=== PATIENT | female | born 1960 | race Caucasian/White ===

== ENCOUNTER 2019-08-06 15:24 | Emergency (ER) | payer OTHER ==
[~2019-08-06] VITALS: Ht 177.8 cm; Wt 136.5 kg
--- OUTSIDE RECORDS SUMMARY | 2019-08-06 15:28 | XMS ---
PreManage Notification: SARA ALLEN Security Dynamite Packing Machine Operator Events No recent Security Events currently on file [facility] There are no care providers on record at this time. Faustino has no Care Guidelines for this patient. Nimisha VISIT COUNT (12 MO.) 1 [facility] TOTAL 1 NOTE: Visits indicate total known visits. ED/UCC VISIT TRACKING (12 MO.) 08/06/2019 15:24 [facility] TYPE: Emergency COMPLAINT: - CONSTIPATION INPATIENT VISIT TRACKING (12 MO.) No inpatient visits to display in this time frame [email or web address]
[2019-08-06] MEDS ORDERED: ZESTRIL10 MG PO (15:45)
[2019-08-06] MEDS ORDERED: VITAMIN D35000 UNI2 PO (15:46)
[2019-08-06] MEDS ORDERED: HYDROCODON-ACE1 EA12 PO (15:47)
== END 2019-08-06 16:57 | disposition home or self-care (01) ==
LOC: ED 15:24
DX: K59.00 Constipation, unspecified (principal); I25.2 Old myocardial infarction; I10 Essential (primary) hypertension; Z85.42 Personal history of malignant neoplasm of other parts of uterus; Z85.830 Personal history of malignant neoplasm of bone; Z85.528 Personal history of other malignant neoplasm of kidney; Z88.5 Allergy status to narcotic agent; Z88.2 Allergy status to sulfonamides; Z91.018 Allergy to other foods; Z79.899 Other long term (current) drug therapy
CPT/HCPCS: 99283

== ENCOUNTER → 2020-03-23 | Emergency (ER) | payer OTHER ==
[~2020-03-23] VITALS: Ht 177.8 cm; Wt 136.5 kg
[~2020-03-23] MED LIST: HYDROCODON-ACE1 EA12 PO; VITAMIN D35000 UNI2 PO; ZESTRIL10 MG PO
--- OUTSIDE RECORDS SUMMARY | ~2020-03-23 | XMS | Encounter Summary ---
Demographics + + + | Address | [address] | | | [place] [address] | + + + | Home Phone | | + + + | Preferred Language | Unknown | + + + | Marital Status | | + + + | Synagogue Affiliation | Unknown | + + + | Race | White | + + + | Ethnic Group | Not or | + + + Author + + + | Author | [facility] | | | and [place] | + + + | Organization | [facility] | | | and [place] | + + + | Address | Unknown | + + + | Phone | Unavailable | + + + Support + + + + + | Name | Relationship | Address | Phone | + + + + + | Nithya Troncoso | ECON | NA | Unavailable | | | | [place] | | + + + + + | Maryanne Beal | ECON | N/A | | | | | [place] [address] | | + + + + + | Elly | KATYA | Unknown | | | [place] | | | | + + + + + Care Team Providers + +------+ + | Care Knife Setter Name | Role | Phone | + +------+ + PCP | Unavailable | + +------+ + Encounter Details +--------+ + + + + | Date | Type | Department | Care Team | Description | +--------+ + + + + | 09/10/ | Hospital | [facility] | | Dizziness | | 2002 | Encounter | [address]VERSION [address] | | | [address] | | | | | | [place] | | | | | | [address] | | | | | | [phone] | | | +--------+ + + + + Social History + +-------+ +--------+------+ | Tobacco Use | Types | Packs/Day | Years | Date | | | | | Used | | + +-------+ +--------+------+ | Never Assessed | | | | | + +-------+ +--------+------+ + + + | Sex Assigned at | Date Recorded | | | | + + + | Not on file | | + + + documented as of this encounter Plan of Treatment Not on filedocumented as of this encounter Visit Diagnoses + + | Diagnosis | + + | Dizziness Dizziness and giddiness | + + documented in this encounter"
--- OUTSIDE RECORDS SUMMARY | ~2020-03-23 | XMS | Encounter Summary ---
Demographics + + + | Address | [address] | | | [place] [address] | + + + | Home Phone | | + + + | Preferred Language | Unknown | + + + | Marital Status | | + + + | Amish Affiliation | Unknown | + + + | Race | White | + + + | Ethnic Group | Not or | + + + Author + + + | Author | [facility] | | | and [place] | + + + | Organization | [facility] | | | [...] | | | | | [place] [address] | | + + + + + | Elly | KATYA | Unknown | | | Sylvester | | | | + + + + + Care Team Providers + +------+ + | Care Direct Sales Professional Name | Role | Phone | + +------+ + | Wade Sena MD | PCP | | + +------+ + Encounter Details +--------+ + + + + | Date | Type | Department | Care Team | Description | +--------+ + + + + | 11/02/ | Orders Only | [facility] | Ko Vega, | | | 2013 | | UROLOGY [address] [place] [address] | PhD [address] | | | | | [place] [address] | [facility] | | | | | [place], [place] | [place] [address] | | | | | [address] | [phone] | | | | | [phone] | | | +--------+ + + + [...] Not on filedocumented as of this encounter Procedures + +--------+ + + + | Procedure Name | Priori | Date/Time | Associated Diagnosis | Comments | | | ty | | | | + +--------+ + + + | CULTURE, URINE | Routin | 11/02/2013 | | Results for this | | | e | 1:42 PM | | procedure are in the | | | | PDT | | results section. | + +--------+ + + + | URINALYSIS, REFLEX | Routin | 11/02/2013 | | Results for this | | MICROSCOPIC AND/OR | e | 1:25 PM | | procedure are in the | | CULTURE | | PDT | | results section. | + +--------+ + + + | URINALYSIS, | Routin | 11/02/2013 | | Results for this | | MICROSCOPIC ONLY | e | 1:25 PM | | procedure are in the | | | | PDT | | results section. | + +--------+ + + + documented in this encounter Results Culture, Urine (11/02/2013 1:42 PM PDT) + + | Specimen | + + | | + + + + + | Narrative | Performed At | + + + | Specimen Description CLEAN CATCH URINE CULTURE | EXTERNAL LAB | | >100,000 CFU/ML | | | ESCHERICHIA COLIAbnormal | | | REPORT STATUS FINAL | | | 11/04/2013 Suscepibility | | | for - ESCHERICHIA COLI Ampicillin | | | RESISTANT Resistant Ampicillin + Sulbactam RESISTANT | | | Resistant Cefepime | | | SUSCEPTIBLESensitive Cefoxitin | | | SUSCEPTIBLESensitive Ceftazidime | | | SUSCEPTIBLESensitive Ceftriaxone | | | SUSCEPTIBLESensitive Ciprofloxacin RESISTANT | | | Resistant Gentamicin | | | SUSCEPTIBLESensitive Levofloxacin | | | RESISTANT Resistant Nitrofurantoin | | | SUSCEPTIBLESensitive Piperacillin + Tazobactam | | | SUSCEPTIBLESensitive Tobramycin | | | SUSCEPTIBLESensitive Trimethoprim + SulfamethoxazoleRESISTANT | | | Resistant | | + + + + +---------+ + + | Performing | Address | City/State/Zipcode | Phone Number | | Organization | | | | + +---------+ + + | EXTERNAL LAB | | | | + +---------+ + + Urinalysis, Reflex Microscopic and/or Culture (11/02/2013 1:25 PM PDT) + + + + + + | Component | Value | Ref Range | Performed | Pathologist | | | | | At | Signature | + + + + + + | Color | YELLOW | | EXTERNAL | | | | | | LAB | | + + + + + + | Clarity, | CLEAR | | EXTERNAL | | | Urine | | | LAB | | + + + + + + | Specific | >1.030 (H) | 1.002 - 1.030 | EXTERNAL | | | [place], | | | LAB | | | Urine | | | | | + + + + + + | Leukocyte | NEGATIVE | | EXTERNAL | | | [facility], | | | LAB | | | Urine | | | | | + + + + + + | Nitrite, | NEGATIVE | | EXTERNAL | | | Urine | | | LAB | | + + + + + + | Urobilinoge | 0.2 | mg/dL | EXTERNAL | | | n, Urine | | | LAB | | + + + + + + | Protein, | 30 (A) | mg/dL | EXTERNAL | | | Urine | | | LAB | | + + + + + + | pH, Urine | 5.5 | 5.0 - 8.0 | EXTERNAL | | | | | | LAB | | + + + + + + | Blood, | SMALL (A) | | EXTERNAL | | | Urine | | | LAB | | + + + + + + | Ketones | NEGATIVE | mg/dL | EXTERNAL | | | | | | LAB | | + + + + + + | Bilirubin, | NEGATIVE | | EXTERNAL | | | Urine | | | LAB | | + + + + + + | Glucose, | NEGATIVE | mg/dL | EXTERNAL | | | Urine | | | LAB | | + + + + + + + + | Specimen | + + | | + + + +---------+ + + | Performing | Address | City/State/Zipcode | Phone Number | | Organization | | | | + +---------+ + + | EXTERNAL LAB | | | | + +---------+ + + Urinalysis, Microscopic Only (11/02/2013 1:25 PM PDT) + + + + + + | Component | Value | Ref Range | Performed | Pathologist | | | | | At | Signature | + + + + + + | WBC, UA | 6-10 | 0 - 5 /hpf | EXTERNAL | | | | | | LAB | | + + + + + + | RBC, UA | 0-2 | 0 - 5 /hpf | EXTERNAL | | | | | | LAB | | + + + + + + | Epithelial | 6-10 | /lpf | EXTERNAL | | | Cells | | | LAB | | + + + + + + | Bacteria, | NONE SEEN | | EXTERNAL | | | UA | | | LAB | | + + + + + + + + | Specimen | + + | | + + + +---------+ + + | Performing | Address | City/State/Zipcode | Phone Number | | Organization | | | | + +---------+ + + | EXTERNAL LAB | | | | + +---------+ + + documented in this encounter Visit Diagnoses Not on filedocumented in this encounter"
--- OUTSIDE RECORDS SUMMARY | ~2020-03-23 | XMS | Encounter Summary ---
Demographics + + + | Address | [address] | | | [place] [address] | + + + | Home Phone | | + + + | Preferred Language | Unknown | + + + | Marital Status | | + + + | Confucianism Affiliation | Unknown | + + + | Race | White | + + + | Ethnic Group | Not or | + + + Author + + + | Author | [facility] | | | and [place] | + + + | Organization | [facility] | | | and [place] | + [...] | | | | | [place] [address] | | + + + + + | Elly | KATYA | Unknown | | | Sylvester | | | | + + + + + Care Team Providers + +------+ + | Care Ballistic Expert Name | Role | Phone | + +------+ + PCP | Unavailable | + +------+ + Encounter Details +--------+ + + + + | Date | Type | Department | Care Team | Description | +--------+ + + + + | 06/26/ | Hospital | [facility] | | | | 2000 | Encounter | [address] | | | | | [address] | | | | | | [place] | | | | | | [address] | | | | | | [phone] | | | +--------+ + + + [...] filedocumented as of this encounter Visit Diagnoses Not on filedocumented in this encounter"
--- OUTSIDE RECORDS SUMMARY | ~2020-03-23 | XMS | Encounter Summary ---
Demographics + + + | Address | [address] | | | [place] [address] | + + + | Home Phone | | + + + | Preferred Language | Unknown | + + + | Marital Status | | + + + | Jewish Affiliation | Unknown | + + + | Race | White | + + + | Ethnic Group | Not or | + + + Author + + + | Author | [facility] | | | and [place] | + + + | Organization | [facility] | | | and [...] | | | | | [place] [address] | | + + + + + | Elly | KATYA | Unknown | | | Sylvester | | | | + + + + + Care Team Providers + +------+ + | Care Dairy Bacteriologist Name | Role | Phone | + +------+ + PCP | Unavailable | + +------+ + Encounter Details +--------+ + + + + | Date | Type | Department | Care Team | Description | +--------+ + + + + | 02/18/ | [facility] | [facility] | Conversion | Pyeloureteritis | | 2016 | Encounter | [facility] | Transaction, | cystica | | | | ULTRASOUND [address] | Provider Unknown | | | | | [facility] | | | | | | [place], [place] | (Fax) | | | | | [address] | | | | | | [phone] | | | +--------+ + + + [...] + + documented as of this encounter Medications at Time of Discharge + + + +---------+ + + | Medication | Sig | Dispensed | Refills | Start | End Date | | | | | | Date | | + + + +---------+ + + | amLODIPine | Take 5 mg by mouth | | 0 | 06/14/20 | | | (NORVASC) 5 mg | daily. | | | 13 | | | tablet | | | | | | + + + +---------+ + + | ergocalciferol | Take 50,000 Units by | | 0 | 06/14/20 | | | (VITAMIN D-2) 50,000 | mouth twice a week. | | | 13 | | | units capsule | | | | | | + + + +---------+ + + | | Take 25 mg by mouth | | 0 | 06/14/20 | | | hydroCHLOROthiazide | daily. | | | 13 | | | 25 mg tablet | | | | | | + + + +---------+ + + | | Take 2 tablets by | | 0 | 06/14/20 | | | HYDROcodone-acetamin | mouth every 4 (four) | | | 13 | | | ophen (NORCO) 10-325 | hours as needed. | | | | | | mg per tablet | | | | | | + + + +---------+ + + | ipratropium | Take 0.5 mg by | | 0 | 06/14/20 | | | (ATROVENT) 500 | nebulization every 6 | | | 13 | | | mcg/2.5 mL nebulizer | (six) hours as | | | | | | solution | needed. | | | | | + + + +---------+ + + documented as of this encounter Plan of Treatment Not on filedocumented as of this encounter Procedures + +--------+ + + + | Procedure Name | Priori | Date/Time | Associated Diagnosis | Comments | | | ty | | | | + +--------+ + + + | US RENAL LIMITED | Routin | 02/19/2016 | | Results for this | | | e | 5:36 PM | | procedure are in the | | | | PDT | | results section. | + +--------+ + + + documented in this encounter Results US Renal Limited (02/19/2016 5:36 PM PDT) + + | Specimen | + + | | + + + + + | Impressions | Performed At | + + + | 1. Small 1.9 cm right renal cyst. 2. Stable 3.5 cm left renal | | | cyst. | | | PM | | + + + + + + | Narrative | Performed At | + + + | [facility] ALL[facility] US KIDNEYS AND BLADDER HISTORY: 55 years. | | | Female. Right kidney mass TECHNIQUE: Sonographic evaluation of | | | the kidneys and bladder was performed. COMPARISON: 06/01/2013 and | | | 02/21/2015 CT abdomen. FINDINGS: The right kidney measures 13.1 x | | | 5.0 x 5.4cm. The left kidney measures 13.1 x 5.0 x 5.3cm. A 3.3 x | | | 3.5 x 3.0 cm cyst within the mid left kidney with a thin internal | | | septation. Mild renal cortical thinning. Small simple cyst within the | | | mid right kidney measuring 1.5 x 1.9 x 1.4 cm. The pre void bladder | | | volume is 98cc with no significant post void residual. Bilateral | | | ureteral jets are not visualized. | | + + + + + | Procedure Note | + + | Primitivo Lynne Conversion - 02/04/2019 9:34 AM PDT [facility]NE[facility] BLAD[facility] | | HISTORY:55 years. Female. Right kidney mass TECHNIQUE:Sonographic evaluation of the | | kidneys and bladder was performed. COMPARISON:06/01/2013 and 02/21/2015 CT abdomen. | | FINDINGS:The right kidney measures 13.1 x 5.0 x 5.4cm. The left kidney measures 13.1 x | | 5.0 x 5.3cm. A 3.3 x 3.5 x 3.0 cm cyst within the mid left kidney with a thin internal | | septation. Mild renal cortical thinning. Small simple cyst within the mid right kidney | | measuring 1.5 x 1.9 x 1.4 cm. The pre void bladder volume is 98cc with no significant | | post void residual. Bilateral ureteral jets are not visualized. IMPRESSION: 1. Small | | 1.9 cm right renal cyst.2. Stable 3.5 cm left renal cyst. | |06/01/2013 and 02/21/2015 CT abdomen. | | | |FINDINGS: | |The right kidney measures 13.1 x 5.0 x 5.4cm. The left kidney measures 13.1 x 5.0 x 5.3cm. | | | |A 3.3 x 3.5 x 3.0 cm cyst within the mid left kidney with a thin internal septation. Mild r enal cortical thinning. Small simple cyst within the mid right kidney measuring 1.5 x 1.9 x 1.4 cm. The pre void bladder volume is 98cc with no significant post | |void residual. Bilateral ureteral jets are not visualized. | | | |IMPRESSION: | |1. Small 1.9 cm right renal cyst. | |2. Stable 3.5 cm left renal cyst. | | | | | + + documented in this encounter Visit Diagnoses + + | Diagnosis | + + | Pyeloureteritis cystica | + + documented in this encounter"
--- OUTSIDE RECORDS SUMMARY | ~2020-03-23 | XMS | Encounter Summary ---
Demographics + + + | Address | [address] | | | [place] [address] | + + + | Home Phone | | + + + | Preferred Language | Unknown | + + + | Marital Status | | + + + | Baptism Affiliation | Unknown | + + + | Race | White | + + + | Ethnic Group | Not or | + + + Author + + + | Author | [facility] | | | and [place] | + + + | Organization | [facility] | | | [...] | | | | | [place] [address] | | + + + + + | Elly | KATYA | Unknown | | | Sylvester | | | | + + + + + Care Team Providers + +------+ + | Care Bottle Booth Attendant Name | Role | Phone | + +------+ + PCP | Unavailable | + +------+ + Encounter Details +--------+ + + + + | Date | Type | Department | Care Team | Description | +--------+ + + + + | 04/26/ | Hospital | [facility] | Conversion | Interstitial | | 2017 | Encounter | [facility] | Transaction, | cystitis | | | | UL[address]ASOUND [address] | Provider Unknown | | | | | [facility] | [phone] | | | | | [place], [place] | | | | | | [address] | Ko Vega MD | | | | | [phone] | PhD [id number] | | | | | | [facility] | | | | | | [place] [address] | | | | | | [phone] | | | | | | | | +--------+ + + + [...] 0.5 mg by | | 0 | // | | | (ATROVENT) 500 | nebulization [...] | US RENAL LIMITED | Routin | 04/26/2017 | | Results for this | | | e | 3:26 PM | | procedure are in the | | | | PDT | | results section. | + +--------+ + + + documented in this encounter Results US Renal Limited (04/26/2017 3:26 PM PDT) + + | Specimen | + + | | + + + + + | Impressions | Performed At | + + + | 1. Mild increase in size of the small cyst within the upper pole | | | the right kidney which measures 1.9 cm. 2. Mild complicated cyst | | | within the left kidney that has mildly increased in size from the | | | previous exam. Electronically signed by DO vanessa Benjamin | | | 04/26/2017 3:32 PM | | + + + + + + | Narrative | Performed At | + + + | [facility] ALL[facility] US KIDNEYS AND BLADDER HISTORY: 56 years. | | | Female. Interstitial cystitis and bilateral renal cysts with bilateral | | | flank pain TECHNIQUE: Sonographic evaluation of the kidneys and | | | bladder was performed. COMPARISON: None. FINDINGS: Right | | | kidney measures 11.1 x 4.5 x 4.7 cm. The left kidney measures 13.1 x | | | 5.0 x 4.6 cm. Kidneys have a normal cortical echotexture without | | | hydronephrosis. Hypoechoic structure within the superior pole the | | | right kidney measuring 1.9 cm that is felt to represent a cyst. | | | Complex cystic structure within the left kidney measuring 3.2 x 3.9 x | | | 3.7 cm with thin internal septation. This measured 3.3 x 3.5 x 3.0 cm | | | on the previous examination. Prevoid bladder volume is 100 cc. | | | Left ureteral jet not visualized. | | + + + + + | Procedure Note | + + | Maged, Rad Conversion - 02/03/2019 10:03 PM PDT [facility] | | HISTORY:56 years. Female. Interstitial cystitis and bilateral renal cysts with bilateral | | flank pain TECHNIQUE:Sonographic evaluation of the kidneys and bladder was performed. | | COMPARISON:None. FINDINGS:Right kidney measures 11.1 x 4.5 x 4.7 cm. The left kidney | | measures 13.1 x 5.0 x 4.6 cm. Kidneys have a normal cortical echotexture without | | hydronephrosis. Hypoechoic structure within the superior pole the right kidney measuring | | 1.9 cm that is felt to represent a cyst. Complex cystic structure within the left | | kidney measuring 3.2 x 3.9 x 3.7 cm with thin internal septation. This measured 3.3 x | | 3.5 x 3.0 cm on the previous examination. Prevoid bladder volume is 100 cc. Left | | ureteral jet not visualized. IMPRESSION: 1. Mild increase in size of the small cyst | | within the upper pole the right kidney which measures 1.9 cm.2. Mild complicated cyst | | within the left kidney that has mildly increased in size from the previous exam. | | | |Right kidney measures 11.1 x 4.5 x 4.7 cm. The left kidney measures 13.1 x 5.0 x 4.6 cm. Ki dneys have a normal cortical echotexture without hydronephrosis. | | | |Hypoechoic structure within the superior pole the right kidney measuring 1.9 cm that is fel t to represent a cyst. | | | |Complex cystic structure within the left kidney measuring 3.2 x 3.9 x 3.7 cm with thin inte rnal septation. This measured 3.3 x 3.5 x 3.0 cm on the previous examination. | | | |Prevoid bladder volume is 100 cc. Left ureteral jet not visualized. | | | | | |IMPRESSION: | |1. Mild increase in size of the small cyst within the upper pole the right kidney which me asures 1.9 cm. | |2. Mild complicated cyst within the left kidney that has mildly increased in size from the previous exam. | | | | | + + documented in this encounter Visit Diagnoses + + | Diagnosis | + + | Interstitial cystitis Chronic interstitial cystitis | + + documented in this encounter"
--- OUTSIDE RECORDS SUMMARY | ~2020-03-23 | XMS | Encounter Summary ---
Demographics + + + | Address | [address] | | | [place] [address] | + + + | Home Phone | | + + + | Preferred Language | Unknown | + + + | Marital Status | | + + + | Synagogue Affiliation | Unknown | + + + | Race | White | + + + | Ethnic Group | Not or | + + + Author + + + | Author | [facility] | | | and [place] | + + + | Organization | [facility] | | | and [...] | | | | | [place] [address] | | + + + + + | Elly | KATYA | Unknown | | | Sylvester | | | | + + + + + Care Team Providers + +------+ + | Care Embedded Systems Software Engineer Name | Role | Phone | + +------+ + PCP | Unavailable | + +------+ + Encounter Details +--------+ + + + + | Date | Type | Department | Care Team | Description | +--------+ + + + + | 03/05/ | Hospital | [facility] | Conversion | Acute medial | | 2011 | Encounter | [facility] | Transaction, | meniscal tear | | | | [address] | Provider Unknown | | | | | [place], [place] | [phone] | | | | | [address] | | | | | | [phone] | Ruddy Ernst | | | | | | Gene Allen DO | | | | | | [phone] | | | | | | [place] [address] | | | | | | [phone] | | | | | | | [...] | + +--------+ + + + | MRI KNEE RIGHT WO | Routin | 03/05/2012 | | Results for this | | CONTRAST | e | 3:32 PM | | procedure are in the | | | | PDT | | results section. | + +--------+ + + + documented in this encounter Results MRI Knee Right wo Contrast (03/05/2012 3:32 PM PDT) + + | Specimen | + + | | + + + + + | Narrative | Performed At | + + + | [facility] ALL[facility] 1960 MRI KNEE RIGHT WO CONTRAST 03/05/2012 | | | 2:40 PM HISTORY: Acute medial knee pain COMPARISON: None. | | | TECHNIQUE: Imaging was performed on a 1.5 Gogo MRI system. | | | Multiplanar sequences according to a standard department protocol | | | were acquired without contrast. FINDINGS: Osseous structures: | | | There is moderate osteoarthritic spurring of the medial and lateral | | | compartments of the knee. There are scattered geographic areas of | | | red marrow reconversion. Mild osteoarthritis along the | | | patellofemoral compartment is present. No acute bone marrow edema | | | is noted. Ligaments: The ACL and PCL are intact. Mild increased | | | signal is noted along the MCL and LCL which is suggestive of a grade 2 | | | tear. Mild increased signal is also noted along the popliteus | | | tendon which may reflect a mild strain. Meniscus: The free edge of | | | the lateral meniscus is blunted and attenuated. Moderate increased | | | signal is noted throughout the anterior horn of the lateral meniscus. | | | The posterior horn is intact. There is some fraying and | | | irregularity along the free edge of the medial meniscus as well. | | | The medial meniscus is slightly extruded from the knee joint. | | | Cartilage: There is some surface irregularity of the chondral surface. | | | This is most notable along the medial compartment where there | | | appears to be some thinning. Along the central weight-bearing | | | surface of the cartilage, there is a chondral defect measuring 7.3 x | | | 13.2 mm. This defect or thinning is noted along the weight-bearing | | | aspect of the medial femoral condyle. There is mild surface | | | irregularity of the lateral compartment. There is moderate thinning | | | of the patellar cartilage notably along the patellar apex. There | | | is chondromalacia grade 2 to grade 3 involving the trochlear sulcus | | | and trochlear facet. Soft tissues: The patellar tendon is intact. | | | There is a mild partial tear of the distal attachment of the | | | quadriceps tendon. There is reticulation and extensive generalized | | | subcutaneous edema surrounding the knee. No Booker cyst is noted. | | | There is no evidence of a muscle strain. The medial and lateral | | | patellar retinaculum are maintained. No loose bodies are noted. A | | | small joint effusion is present. IMPRESSION: 1. There appears | | | to be a partial tear of the quadriceps tendon. 2. Grade 2 sprain of | | | the MCL and LCL with a mild sprain of the adjacent popliteus tendon. | | | 3. There is fraying and blunting of the free edge of the medial and | | | lateral meniscus which appears fairly chronic. There may be a acute | | | small acute tear along the undersurface of the body of the medial | | | meniscus. 4. 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 5. There is red | | | marrow reconversion which has a broad differential including anemia, | | | smoking history and infectious etiologies. | | + + + + + | Procedure Note | + + | Maged, Rad Conversion - 02/13/2019 4:26 AM PDT [facility]1960MRI KNEE RIGHT | | WO CONTRAST03/05/2012 2:40 PM HISTORY: Acute medial knee pain COMPARISON: None. | | TECHNIQUE:Imaging was performed on a 1.5 Gogo MRI system. Multiplanar sequences | | according to a standard department protocol were acquired without contrast. FINDINGS: | | Osseous structures: There is moderate osteoarthritic spurring of the medial and lateral | | compartments of the knee. There are scattered geographic areas of red marrow | | reconversion. Mild osteoarthritis along the patellofemoral compartment is present. No | | acute bone marrow edema is noted. Ligaments: The ACL and PCL are intact. Mild increased | | signal is noted along the MCL and LCL which is suggestive of a grade 2 tear. Mild | | increased signal is also noted along the popliteus tendon which may reflect a mild | | strain. Meniscus: The free edge of the lateral meniscus is blunted and attenuated. | | Moderate increased signal is noted throughout the anterior horn of the lateral meniscus. | | The posterior horn is intact. There is some fraying and irregularity along the free | | edge of the medial meniscus as well. The medial meniscus is slightly extruded from the | | knee joint. Cartilage: There is some surface irregularity of the chondral surface. This | | is most notable along the medial compartment where there appears to be some thinning. | | Along the central weight-bearing surface of the cartilage, there is a chondral defect | | measuring 7.3 x 13.2 mm. This defect or thinning is noted along the weight-bearing | | aspect of the medial femoral condyle. There is mild surface irregularity of the lateral | | compartment. There is moderate thinning of the patellar cartilage notably along the | | patellar apex. There is chondromalacia grade 2 to grade 3 involving the trochlear | | sulcus and trochlear facet. Soft tissues: The patellar tendon is intact. There is a | | mild partial tear of the distal attachment of the quadriceps tendon. There is | | reticulation and extensive generalized subcutaneous edema surrounding the knee. No | | Booker cyst is noted. There is no evidence of a muscle strain. The medial and lateral | | patellar retinaculum are maintained. No loose bodies are noted. A small joint effusion | | is present. IMPRESSION:1. There appears to be a partial tear of the quadriceps | | tendon.2. Grade 2 sprain of the MCL and LCL with a mild sprain of the adjacent | | popliteus tendon.3. There is fraying and blunting of the free edge of the medial and | | lateral meniscus which appears fairly chronic. There may be a acute small acute tear | | along the undersurface of the body of the medial meniscus.4. Grade 2 to grade 3 | | chondromalacia of the central weight-bearing surface of the medial femoral condyle with | | a similar finding along the patellofemoral compartment.5. There is red marrow | | reconversion which has a broad differential including anemia, smoking history and | | infectious etiologies. | | AM | |4. Grade 2 to grade 3 chondromalacia of the central weight-bearing surface of the medial f emoral condyle with a similar finding along the patellofemoral compartment. | |5. There is red marrow reconversion which has a broad differential including anemia, smoki ng history and infectious etiologies. | | | | | + + documented in this encounter Visit Diagnoses + + | Diagnosis | + + | Acute medial meniscal tear Tear of medial cartilage or meniscus of knee, current | + + documented in this encounter"
--- OUTSIDE RECORDS SUMMARY | ~2020-03-23 | XMS | Encounter Summary ---
Demographics + + + | Address | [address] | | | [place] [address] | + + + | Home Phone | | + + + | Preferred Language | Unknown | + + + | Marital Status | | + + + | Alevism Affiliation | Unknown | + + + | Race | White | + + + | Ethnic Group | Not or | + + + Author + + + | Author | [facility] | | | and [place] | + + + | Organization | [facility] | | [...] | | | | | [place] [address] | | + + + + + | Elly | KATYA | Unknown | | | Sylvester | | | | + + + + + Care Team Providers + +------+ + | Care Rental Car Ferry Driver Name | Role | Phone | + +------+ + PCP | Unavailable | + +------+ + Encounter Details +--------+ + + + + | Date | Type | Department | Care Team | Description | +--------+ + + + + | 11/05/ | Hospital | [facility] | | | | 2012 | Encounter | MED CTR XRAY [address] | | | | | [address] | | | | | | [place] [address] | | | | | | [phone] | | | +--------+ + + + [...]
--- OUTSIDE RECORDS SUMMARY | ~2020-03-23 | XMS | Encounter Summary ---
Demographics + + + | Address | [address] | | | [place] [address] | + + + | Home Phone | | + + + | Preferred Language | Unknown | + + + | Marital Status | | + + + | Scientologist Affiliation | Unknown | + + + | Race | White | + + + | Ethnic Group | Not or | + + + Author + + + | Author | [facility] | | | and [place] | + + + | Organization | [facility] | | [...] | | | | | [place] [address] | | + + + + + | Elly | KATYA | Unknown | | | Sylvester | | | | + + + + + Care Team Providers + +------+ + | Care Preschool Teacher Aide Name | Role | Phone | + +------+ + | Wade Sena MD | PCP | | + +------+ + Encounter Details +--------+ + + + + | Date | Type | Department | Care Team | Description | +--------+ + + + + | 09/06/ | Orders Only | [facility] | Ko Vega, | | | 2013 | | UROLOGY [address] [place] [address] | PhD [address] | | | | | [place] [address] | [facility] | | | | | [place], [place] | [place] [address] | | | | | [address] | [phone] | | | | | [phone] | | | +--------+ + + + [...] + | URINALYSIS, REFLEX | Routin | 09/06/2013 | | Results for this | | MICROSCOPIC AND/OR | e | 11:42 AM | | procedure are in the | | CULTURE | | PDT | | results section. | + +--------+ + + + | URINALYSIS, | Routin | 09/06/2013 | | Results for this | | MICROSCOPIC ONLY | e | 11:42 AM | | procedure are in the | | | | PDT | | results section. | + +--------+ + + + | CULTURE, URINE | Routin | 09/06/2013 | | Results for this | | | e | 11:42 AM | | procedure are in the | | | | PDT | | results section. | + +--------+ + + + | MEDICAL CYTOLOGY | Routin | 09/06/2013 | | Results for this | | | e | 12:00 AM | | procedure are in the | | | | PDT | | results section. | + +--------+ + + + documented in this encounter Results Urinalysis, Reflex Microscopic and/or Culture (09/06/2013 11:42 AM PDT) + + + + + + | Component | Value | Ref Range | Performed | Pathologist | | | | | At | Signature | + + + + + + | Color | YELLOW | | EXTERNAL | | | | | | LAB | | + + + + + + | Clarity, | CLOUDY | | EXTERNAL | | | Urine | | | LAB | | + + + + + + | Specific | 1.025 | 1.002 - 1.030 | EXTERNAL | | | [place], | | | LAB | | | Urine | | | | | + + + + + + | Leukocyte | TRACE (A) | | EXTERNAL | | | Esterase, | | | LAB | | | Urine | | | | | + + + + + + | Nitrite, | POSITIVE (A) | | EXTERNAL | | | Urine | | | LAB | | + + + + + + | Urobilinoge | 0.2 | mg/dL | EXTERNAL | | | n, Urine | | | LAB | | + + + + + + | Protein, | NEGATIVE | mg/dL | EXTERNAL | | | Urine | | | LAB | | + + + + + + | pH, Urine | 6.0 | 5.0 - 8.0 | EXTERNAL | [...] + +---------+ + + Urinalysis, Microscopic Only (09/06/2013 11:42 AM PDT) + + + + + + | Component | Value | Ref Range | Performed | Pathologist | | | | | At | Signature | + + + + + + | WBC, UA | 1-5 | 0 - 5 /hpf | EXTERNAL | | | | | | LAB | | + + + + + + | RBC, UA | 6-10 | 0 - 5 /hpf | EXTERNAL | | | | | | LAB | | + + + + + + | Epithelial | >100 | /lpf | EXTERNAL | | | Cells | | | LAB | | + + + + + + | Bacteria, | 4+ (A) | | EXTERNAL | | | UA | | | LAB | | + + + + + + | Urinalysis | CULTURE TO FOLLOW | | EXTERNAL | | | Comments | | | LAB | | + + + + + + + + | Specimen | + + | | + + + +---------+ + + | Performing | Address | City/State/Zipcode | Phone Number | | Organization | | | | + +---------+ + + | EXTERNAL LAB | | | | + +---------+ + + Culture, Urine (09/06/2013 11:42 AM PDT) + + | Specimen | + + | | + + + + + | Narrative | Performed At | + + + | Specimen Description CLEAN CATCH URINE CULTURE | EXTERNAL LAB | | >100,000 CFU/ML | | | ESCHERICHIA COLI REPORT | | | STATUS FINAL | | | 09/08/2013 Suscepibility for - | | | ESCHERICHIA COLI Ampicillin RESISTANT | | | Resistant Ampicillin + Sulbactam RESISTANT Resistant | | | Cefazolin SUSCEPTIBLESensitive Cefepime | | | SUSCEPTIBLESensitive Cefoxitin | | | SUSCEPTIBLESensitive Ceftazidime | | | SUSCEPTIBLESensitive Ceftriaxone | | | SUSCEPTIBLESensitive Ciprofloxacin | | | RESISTANT Resistant Gentamicin | | | SUSCEPTIBLESensitive Levofloxacin [...] | | | + +---------+ + + Medical Cytology (09/06/2013 12:00 AM PDT) + + | Specimen | + + | | + + + + + | Narrative | Performed At | + + + | CASE: [id number] PATIENT: SARA ALLEN Cytology Report | EXTERNAL LAB | | Clinical History: GROSS HEMATURIA Gross Description: 20 ML CLOUDY | | | YELLOW FLUID Lab Preparation: 1 MONOLAYER Specimen: A. BLADDER | | | WASHING CYTOLOGIC INTERPRETATION: BLADDER WASHINGS: NEGATIVE | | | FOR MALIGNANT CELLS SPECIMEN ADEQUACY: Satisfactory for | | | Evaluation DESCRIPTION: The preparation is adequately cellular, | | | containing well-preserved transitional cells. Benign cell clusters | | | are present. Atypical findings are not encountered. Performing | | | Laboratory: Professional interpretation was performed by [facility] | | | [facility], [address] | | | [place] [address] (Marketing And Promotions Manager: Dwayne Saenz M.D.; CLIA#: | | | [id number]). Technical preparation was performed by [facility] | | | [facility] [address] [place] [address] | | | (Marketing And Promotions Manager: Justen Lees M.D.; CLIA#: [id number]). | | | Ruthann BECERRA([facility]) Electronically signed Aug | | | 2013 6:33:01AM Sondra Logan MD Electronically signed Sep 09 | | | 2013 11:48:32AM | | + + + + +---------+ + + | Performing | Address | City/State/Zipcode | Phone Number | | Organization | | | | + +---------+ + + | EXTERNAL LAB | | | | + +---------+ + + documented in this encounter Visit Diagnoses Not on filedocumented in this encounter"
--- OUTSIDE RECORDS SUMMARY | ~2020-03-23 | XMS | Encounter Summary ---
Demographics + + + | Address | [address] | | | [place] [address] | + + + | Home Phone | | + + + | Preferred Language | Unknown | + + + | Marital Status | | + + + | Judaism Affiliation | Unknown | + + + | Race | White | + + + | Ethnic Group | Not or | + + + Author + + + | Author | [facility] | | | and [place] [...] | | | | | [place] [address] | | + + + + + | Elly | KATYA | Unknown | | | Sylvester | | | | + + + + + Care Team Providers + +------+ + | Care Sheetmetal Trades Worker Name | Role | Phone | + +------+ + PCP | Unavailable | + +------+ + Encounter Details +--------+ + + + + | Date | Type | Department | Care Team | Description | +--------+ + + + + | 07/06/ | Hospital | C GENERIC IP | Conversion | Pain | | 2014 | Encounter | CONVERSION [address] | Transaction, | | | | | [address] | Provider Unknown | | | | | [place], [place] | [phone] | | | | | [address] | | | | | | [phone] | | | +--------+ + + + [...] | US RENAL LIMITED | Routin | 01/05/2013 | | Results for this | | | e | 11:08 PM | | procedure are in the | | | | PDT | | results section. | + +--------+ + + + documented in this encounter Results US Renal Limited (01/05/2013 11:08 PM PDT) + + | Specimen | + + | | + + + + + | Narrative | Performed At | + + + | This is a non-reportable procedure without a radiologist report and | | | is used for image storage only | | + + + + + | Procedure Note | + + | Primitivo Lynne - 02/05/2019 8:40 PM PDT This is a non-reportable procedure | | without a radiologist report and isused for image storage only | + + documented in this encounter Visit Diagnoses + + | Diagnosis | + + | Pain Generalized pain | + + documented in this encounter"
--- OUTSIDE RECORDS SUMMARY | ~2020-03-23 | XMS | Encounter Summary ---
Demographics + + + | Address | [address] | | | [place] [address] | + + + | Home Phone | | + + + | Preferred Language | Unknown | + + + | Marital Status | | + + + | Sabianism Affiliation | Unknown | + + + | Race | White | + + + | Ethnic Group | Not or | + + + Author + + + | Author | [facility] | | | and [place] | + + + | Organization | [facility] | | | [...] | | | | | [place] [address] | | + + + + + | Elly | KATYA | Unknown | | | Sylvester | | | | + + + + + Care Team Providers + +------+ + | Care Director Of Parks And Recreation Name | Role | Phone | + +------+ + PCP | Unavailable | + +------+ + Encounter Details +--------+ + + + + | Date | Type | Department | Care Team | Description | +--------+ + + + + | 03/17/ | Hospital | [facility] GENERIC OP | | JOINT PAIN-SHLDER | | 2001 | Encounter | [address]VERSION [address] | | | [address] | | | | | | [facility] [place] [place] | | | | | | [address] | | | | | | [phone] | | | +--------+ + + + [...] | Diagnosis | + + | Pain in joint, shoulder region | + + documented in this encounter"
--- OUTSIDE RECORDS SUMMARY | ~2020-03-23 | XMS | Encounter Summary ---
Demographics + + + | Address | [address] | | | [place] [address] | + + + | Home Phone | | + + + | Preferred Language | Unknown | + + + | Marital Status | | + + + | Quaker Affiliation | Unknown | + + + | Race | White | + + + | Ethnic Group | Not or | + + + Author + + + | Author | [facility] | | | and [place] | + + + | Organization | [facility] | | | and [...] | | | | | [place] [address] | | + + + + + | Elly | KATYA | Unknown | | | Sylvester | | | | + + + + + Care Team Providers + +------+ + | Care Behavioral Assistant Name | Role | Phone | + +------+ + PCP | Unavailable | + +------+ + Encounter Details +--------+ + + + + | Date | Type | Department | Care Team | Description | +--------+ + + + + | 12/10/ | Hospital | [facility] | Conversion | Renal cyst, left | | 2013 | Encounter | [facility] | Transaction, | | | | | [address] | Provider Unknown | | | | | [address] | | | | | | [place], [place] | (Fax) | | | | | [address] | | | | | | [phone] | | | +--------+ + + + [...] | US RENAL LIMITED | Routin | 12/10/2013 | | Results for this | | | e | 11:24 AM | | procedure are in the | | | | PDT | | results section. | + +--------+ + + + documented in this encounter Results US Renal Limited (12/10/2013 11:24 AM PDT) + + | Specimen | + + | | + + + + + | Impressions | Performed At | + + + | 1. Left renal cyst with a solitary thin septation, no contrast | | | enhancement and inapparent valentine represents a Bosniak 1 type lesion | | | which does not require further imaging at this point in time. 2. | | | Otherwise unremarkable ultrasound of the kidneys and bladder. | | | | | + + + + + + | Narrative | Performed At | + + + | [facility] US KIDNEYS AND BLADDER 12/10/2013 11:24 AM | | | HISTORY: 53 years. Female. Followup left renal cyst 753.10 | | | TECHNIQUE: Imaging performed using a 4-MHz curved array transducer. | | | COMPARISON: Prior ultrasound 01/05/[address] scan of 06/01/2013 | | | and 10/21/2012 FINDINGS: Right Kidney: 12.7 x 4.6 x 3.5 cm. | | | Normal echogenicity and cortical thickness. No solid or cystic | | | mass is noted. No renal parenchymal or collecting system calculi are | | | seen. No hydronephrosis noted. Normal blood flow to the renal hilum | | | seen with color flow imaging. Left Kidney: 12.0 x 6.4 x 4.3 cm. | | | Normal echogenicity and cortical thickness. No solid mass is | | | seen. A solitary simple cyst is noted measuring 3.1 x 2.7 x 3 cm. | | | Previously = 2.7 x 3 x [address] scan. There appears to be a single | | | septation. Prior CT scan showed no enhancing septations or | | | nodularity with a inapparent wall and no contrast enhancement. No | | | renal parenchymal or collecting system calculi are seen. No | | | hydronephrosis noted. Normal blood flow to the renal hilum seen with | | | color flow imaging. The pre-void volume of the bladder is 173 | | | cc. The post void volume is 0 cc which is normal. Bilateral | | | ureteral jet(s) noted. No wall thickening noted. No intraluminal | | | mass seen. | | + + + + + | Procedure Note | + + | Maged, Rad Conversion - 02/05/2019 8:40 PM PDT SARA NAIR KIDNEYS AND | | BLADDER12/10/2013 11:24 AM HISTORY:53 years. Female. Followup left renal cyst 753.10 | | TECHNIQUE:Imaging performed using a 4-MHz curved array transducer. COMPARISON:Prior | | ultrasound 01/05/[address] scan of 06/01/2013 and 10/21/2012 FINDINGS:Right Kidney: | | 12.7 x 4.6 x 3.5 cm. Normal echogenicity and cortical thickness. No solid or cystic | | mass is noted. No renal parenchymal or collecting system calculi are seen. No | | hydronephrosis noted. Normal blood flow to the renal hilum seen with color flow | | imaging. Left Kidney: 12.0 x 6.4 x 4.3 cm. Normal echogenicity and cortical thickness. | | No solid mass is seen. A solitary simple cyst is noted measuring 3.1 x 2.7 x 3 cm. | | Previously = 2.7 x 3 x 2[address] scan. There appears to be a single septation. Prior | | CT scan showed no enhancing septations or nodularity with a inapparent wall and no | | contrast enhancement. No renal parenchymal or collecting system calculi are seen. No | | hydronephrosis noted. Normal blood flow to the renal hilum seen with color flow | | imaging. The pre-void volume of the bladder is 173 cc. The post void volume is 0 cc | | which is normal. Bilateral ureteral jet(s) noted. No wall thickening noted. No | | intraluminal mass seen. IMPRESSION: 1. Left renal cyst with a solitary thin septation, | | no contrast enhancement and inapparent valentine represents a Bosniak 1 type lesion which | | does not require further imaging at this point in time.2. Otherwise unremarkable | | ultrasound of the kidneys and bladder. Electronically signed by Ignacio Elizabeth MD on | | 12/10/2013 12:25 PM | | scan showed no enhancing septations or nodularity with a inapparent wall and no contrast e nhancement. No renal parenchymal or collecting system calculi are seen. No hydronephrosis n oted. Normal blood flow to the renal hilum seen with color flow | |imaging. | | | |The pre-void volume of the bladder is 173 cc. The post void volume is 0 cc which is normal . Bilateral ureteral jet(s) noted. No wall thickening noted. No intraluminal mass seen. | | | |IMPRESSION: | |1. Left renal cyst with a solitary thin septation, no contrast enhancement and inapparent valentine represents a Bosniak 1 type lesion which does not require further imaging at this poin t in time. | |2. Otherwise unremarkable ultrasound of the kidneys and bladder. | | | | | + + documented in this encounter Visit Diagnoses + + | Diagnosis | + + | Renal cyst, left Unspecified congenital cystic kidney disease | + + documented in this encounter"
--- OUTSIDE RECORDS SUMMARY | ~2020-03-23 | XMS | Clinical Summary ---
Demographics + + + | Address | [address] | | | [place] [address] | + + + | Home Phone | | + + + | Preferred Language | Unknown | + + + | Marital Status | | + + + | Rastafarian Affiliation | Unknown | + + + | Race | White | + + + | Ethnic Group | Not or | + + + Author + + + | Author | [facility] | | | and [place] | + + + | Organization | [facility] | | | [...] | | | | | [place] [address] | | + + + + + | Elly | KATYA | Unknown | | | Sylvester | | | | + + + + + Care Team Providers + +------+ + | Care Classification Officer Name | Role | Phone | + +------+ + | Wade Sena MD | PCP | | + +------+ + Allergies + + + + + + | Active Allergy | Reactions | Severity | Noted | Comments | | | | | Date | | + + + + + + | Zinc | Anaphylaxis | High | 06/14/20 | Quit breathing, | | | | | 13 | Blisters | + + + + + + | Flu Virus Vaccine | Other (See Comments) | Medium | 11/25/19 | LOC | | | | | 19 | | + + + + + + | Pertussis Vaccines | Other (See Comments) | Medium | 11/25/19 | Violently sick | | | | | 19 | | + + + + + + | Pseudoephedrine | Rash | Medium | 11/25/19 | Rash | | | | | 19 | | + + + + + + | Sulfa Antibiotics | Anaphylaxis | High | 06/14/20 | Quit breathing | | | | | 13 | | + + + + + + | Azithromycin | Other (See Comments) | Medium | 06/14/20 | Mouth swells up | | | | | 13 | | + + + + + + Medications + + + +---------+------+------+-------+ | Medication | Sig | Dispensed | Refills | Star | End | Statu | | | | | | t | Date | s | | | | | | Date | | | + + + +---------+------+------+-------+ | ergocalciferol | Take 50,000 Units by | | 0 | 12/2 | | Activ | | (VITAMIN D-2) 50,000 | mouth twice a week. | | | 3/20 | | e | | units capsule | | | | 13 | | | + + + +---------+------+------+-------+ | | Take 25 mg by mouth | | 0 | 12/2 | | Activ | | hydroCHLOROthiazide | daily. | | | 320 | | e | | 25 mg tablet | | | | 13 | | | + + + +---------+------+------+-------+ | ondansetron | Take 1 tablet by | | 0 | 06/0 | | Activ | | (ZOFRAN ODT) 4 mg | mouth. | | | 420 | | e | | disintegrating | | | | 19 | | | | tablet | | | | | | | + + + +---------+------+------+-------+ | lisinopril | Take 20 mg by mouth | | 0 | 06/0 | | Activ | | (PRINIVIL, ZESTRIL) | daily. | | | 4/20 | | e | | 20 mg tablet | | | | 19 | | | + + + +---------+------+------+-------+ | | Take 2 tablets by | | 0 | 12/2 | | Activ | | HYDROcodone-acetamin | mouth every 4 (four) | | | 3/20 | | e | | ophen (NORCO) 10-325 | hours as needed. | | | 13 | | | | mg per tablet | | | | | | | + + + +---------+------+------+-------+ | amLODIPine | Take 5 mg by mouth | | 0 | 12/2 | | Activ | | (NORVASC) 5 mg | daily. | | | 3/20 | | e | | tablet | | | | 13 | | | + + + +---------+------+------+-------+ | ipratropium | Take 0.5 mg by | | 0 | 12/2 | | Activ | | (ATROVENT) 500 | nebulization every 6 | | | 3/20 | | e | | mcg/2.5 mL nebulizer | (six) hours as | | | 13 | | | | solution | needed. | | | | | | + + + +---------+------+------+-------+ | mirabegron | Take 50 mg by mouth. | | 0 | 06/0 | | Activ | | (MYRBETRIQ) 50 mg ER | | | | 4/20 | | e | | tablet | | | | 19 | | | + + + +---------+------+------+-------+ Active Problems + + + | Problem | Noted Date | + + + | Degeneration of intervertebral disc of lumbar region | 11/24/2018 | + + + | Pelvic pain in female | 12/10/2013 | + + + | History of uterine cancer | 11/03/2013 | + + + | Seizure | 11/02/2013 | + + + | Renal cyst, left | 11/02/2013 | + + + | Hemorrhagic cystitis | 11/02/2013 | + + + | Urgency of urination | 11/02/2013 | + + + | Urge urinary incontinence | 11/02/2013 | + + + | Stranguria | 11/02/2013 | + + + | Urinary hesitancy | 11/02/2013 | + + + | Incomplete bladder emptying | 11/02/2013 | + + + | Cystocele | 11/02/2013 | + + + | Weak urinary stream | 11/02/2013 | + + + | Gross hematuria | 09/06/2013 | + + + | Renal cyst | 09/06/2013 | + + + | Morbid obesity | 09/06/2013 | + + + Family History + + +------+ + | Medical History | Relation | Name | Comments | + + +------+ + | Other (see comment) | Maternal | | Other (see comments) - Brain tumors | | | Aunt | | | + + +------+ + | Cancer | Mother | | | + + +------+ + | Lung cancer | Mother | | | + + +------+ + | Stroke | Other | | | + + +------+ + | Uterine cancer | Other | | | + + +------+ + + +------+ + + | Relation | Name | Status | Comments | + +------+ + + | Father | | | MVA | + +------+ + + | Maternal Aunt | | | | + +------+ + + | Maternal Aunt | | | | + +------+ + + | Mother | | | | + +------+ + + | Mother | | | | + +------+ + + | Other | | | | + +------+ + + | Other | | | | + +------+ + + Social History + +-------+ +--------+------+ | Tobacco Use | Types | Packs/Day | Years | Date | | | | | Used | | + +-------+ +--------+------+ | Former Smoker | | 0.5 | | | + +-------+ +--------+------+ + + + | Sex Assigned at | Date Recorded | | | | + + + | Not on file | | + + + Last Filed Vital Signs + + + + + | Vital Sign | Reading | Time Taken | Comments | + + + + + | Blood Pressure | 153/77 | 11/24/2018 2:18 PM | | | | | PDT | | + + + + + | Pulse | 76 | 11/24/2018 2:18 PM | | | | | PDT | | + + + + + | Temperature | - | - | | + + + + + | Respiratory Rate | - | - | | + + + + + | Oxygen Saturation | - | - | | + + + + + | Inhaled Oxygen | - | - | | | Concentration | | | | + + + + + | Weight | 155.6 kg (343 lb) | 11/24/2018 2:18 PM | | | | | PDT | | + + + + + | Height | 177.8 cm (5' 10") | 11/24/2018 2:18 PM | | | | | PDT | | + + + + + | Body Mass Index | 49.22 | 11/24/2018 2:18 PM | | | | | PDT | | + + + + + Plan of Treatment + + + + + | Health Maintenance | Due Date | Last | Comments | | | | Done | | + + + + + | Hepatitis C | | | | | Screening | 0 | | | + + + + + | Med Mgmt: K | | | | | | 0 | | | + + + + + | Med Mgmt: Na | | | | | | 0 | | | + + + + + | Med Mgmt: Vit D | | | | | | 0 | | | + + + + + | Medication | | | | | Management | 0 | | | + + + + + | Cervical Cancer | | | | | Screening (Pap) | 0 | | | + + + + + | Colorectal Cancer | | | | | Screening | 0 | | | | (Colonoscopy) | | | | + + + + + | Vaccine: Zoster (1 | | | | | of 2) | 0 | | | + + + + + | Breast Cancer | | | | | Screening | 5 | | | + + + + + | Med Mgmt: Cr | | 02/22/20 | | | | 6 | 15 | | + + + + + Results Not on filefrom Last 3 Months
--- OUTSIDE RECORDS SUMMARY | ~2020-03-23 | XMS | Encounter Summary ---
Demographics + + + | Address | [address] | | | [place] [address] | + + + | Home Phone | | + + + | Preferred Language | Unknown | + + + | Marital Status | | + + + | Cheondoism Affiliation | Unknown | + + + | Race | White | + + + | Ethnic Group | Not or | + + + Author + + + | Author | [facility] | | | and [place] | + + + | Organization | [facility] | | [...] | | | | | [place] [address] | | + + + + + | Elly | KATYA | Unknown | | | Sylvester | | | | + + + + + Care Team Providers + +------+ + | Care Ceramic Artist Name | Role | Phone | + [...] Provider Unknown | | | | | [place], [place] | [phone] | | | | | [address] | | | | | | [phone] | | | +--------+ + + + [...] | + +--------+ + + + | CT ANGIOGRAM CHEST W | Routin | 07/01/2013 | | Results for this | | CONTRAST | e | 11:08 PM | | procedure are in the | | | | PST | | results section. | + +--------+ + + + documented in this encounter Results CT Angiogram Chest W Contrast (07/01/2013 11:08 PM PST) + + | Specimen | + + [...] Rad Conversion - 02/05/2019 8:40 PM PDT This is a non-reportable procedure | | without a radiologist report and isused for image storage only | + + documented in this encounter Visit Diagnoses + + | Diagnosis | + + | Pain Generalized pain | + + documented in this encounter"
--- OUTSIDE RECORDS SUMMARY | ~2020-03-23 | XMS | Encounter Summary ---
Demographics + + + | Address | [address] | | | [place] [address] | + + + | Home Phone | | + + + | Preferred Language | Unknown | + + + | Marital Status | | + + + | Christian Affiliation | Unknown | + + + | Race | White | + + + | Ethnic Group | Not or | + + + Author + + + | Author | [facility] | | | and [place] | + + + | Organization | [facility] | | | and [place] | + + + | Address | Unknown | + + + | Phone | Unavailable | + + + Support + + + + + | Name | Relationship | Address | Phone | + + + + + | Nithya Troncoso | ECON | NA | Unavailable | | | | [place] | | + + + + + | Maryanne Beal | ECON | N/A | | | | | [place] [address] | | + + + + + | Elly | KATYA | Unknown | | | Sylvester | | | | + + + + + Care Team Providers + +------+ + | Care Client Liaison Name | Role | Phone | + +------+ + PCP | Unavailable | + +------+ + Encounter Details +--------+ + + + + | Date | Type | Department | Care Team | Description | +--------+ + + + + | 10/25/ | Hospital | [facility] | Conversion | Lumbar radiculopathy | | 2018 | Encounter | [facility] MRI | Transaction, | | | | | [address] | Provider Unknown | | | | | [place], [place] | [phone] | | | | | [address] | | | | | | [phone] | Wade Sena | | | | | | MD [address] | | | | | | [facility], | | | | | | [place] [address] | | | | | | [phone] | | | | | | | [...] 0.5 mg by | | 0 | 06/14/ | | | (ATROVENT) 500 | nebulization [...] + +--------+ + + + | MRI LUMBAR SPINE WO | Routin | 10/25/2017 | | Results for this | | CONTRAST | e | 5:10 PM | | procedure are in the | | | | PDT | | results section. | + +--------+ + + + documented in this encounter Results MRI Lumbar Spine wo Contrast (10/25/2017 5:10 PM PDT) + + | Specimen | + + | | + + + + + | Impressions | Performed At | + + + | 1. No spinal canal stenosis. No neural foraminal stenosis. 2. | | | Mild disc degeneration of the lumbar spine with disc desiccation. | | | 3. Other findings as described. | | + + + + + + | Narrative | Performed At | + + + | [facility] 1960 MRI LUMBAR SPINE WO CONTRAST 10/25/2017 | | | 5:10 PM INDICATION: Lumbar radiculopathy. COMPARISON: None. | | | TECHNIQUE: Imaging was performed on a 1.5 Gogo MRI system. | | | Multiplanar sequences according to a standard department protocol | | | were acquired without contrast. FINDINGS: Conus ends at L1. No | | | abnormal signal of the terminal spinal cord. T11-T12 and T12-L1 | | | levels are unremarkable with no spinal canal stenosis or neural | | | foraminal stenosis. L1-L2: Intervertebral disc desiccation. No | | | spinal canal stenosis. No neural foraminal stenosis. Small facet joint | | | effusions. L2-L3: No spinal canal stenosis. Neural foramina are | | | open. Small facet joint effusions. Mild disc desiccation. L3-L4: | | | Mild disc desiccation. Mild posterior disc protrusion. No spinal canal | | | stenosis. Mild right neural foraminal narrowing. Left neural foramen | | | is open. Facet joints are normal. L4-L5: Intervertebral disc | | | height is preserved. No spinal canal stenosis. Neural foramina are | | | open. L5-S1: Intervertebral disc desiccation. Mild broad-based | | | posterior disc protrusion. No spinal canal stenosis. Neural foramina | | | are open. Facet joints are normal. Left parapelvic renal cysts. | | | No acute bone marrow edema of the lumbar spine vertebral bodies. | | + + + + + | Procedure Note | + + | Primitivo Lynne Conversion - 02/03/2019 2:26 AM [facility]1960MRI LUMBAR SPINE | | FAWN BARAHONA10/25/2017 5:10 PM INDICATION: Lumbar radiculopathy. COMPARISON: None. | | TECHNIQUE:Imaging was performed on a 1.5 Gogo MRI system. Multiplanar sequences | | according to a standard department protocol were acquired without contrast. FINDINGS: | | Conus ends at L1. No abnormal signal of the terminal spinal cord. T11-T12 and T12-L1 | | levels are unremarkable with no spinal canal stenosis or neural foraminal stenosis. | | L1-L2: Intervertebral disc desiccation. No spinal canal stenosis. No neural foraminal | | stenosis. Small facet joint effusions. L2-L3: No spinal canal stenosis. Neural foramina | | are open. Small facet joint effusions. Mild disc desiccation. L3-L4: Mild disc | | desiccation. Mild posterior disc protrusion. No spinal canal stenosis. Mild right neural | | foraminal narrowing. Left neural foramen is open. Facet joints are normal. L4-L5: | | Intervertebral disc height is preserved. No spinal canal stenosis. Neural foramina are | | open. L5-S1: Intervertebral disc desiccation. Mild broad-based posterior disc | | protrusion. No spinal canal stenosis. Neural foramina are open. Facet joints are normal. | | Left parapelvic renal cysts. No acute bone marrow edema of the lumbar spine vertebral | | bodies. IMPRESSION: 1. No spinal canal stenosis. No neural foraminal stenosis.2. Mild | | disc degeneration of the lumbar spine with disc desiccation.3. Other findings as | | described. | |L1-L2: Intervertebral disc desiccation. No spinal canal stenosis. No neural foraminal steno sis. Small facet joint effusions. | | | |L2-L3: No spinal canal stenosis. Neural foramina are open. Small facet joint effusions. Mil d disc desiccation. | | | |L3-L4: Mild disc desiccation. Mild posterior disc protrusion. No spinal canal stenosis. Mil d right neural foraminal narrowing. Left neural foramen is open. Facet joints are normal. | | | |L4-L5: Intervertebral disc height is preserved. No spinal canal stenosis. Neural foramina a re open. | | | |L5-S1: Intervertebral disc desiccation. Mild broad-based posterior disc protrusion. No spin al canal stenosis. Neural foramina are open. Facet joints are normal. | | | |Left parapelvic renal cysts. | | | |No acute bone marrow edema of the lumbar spine vertebral bodies. | | | |IMPRESSION: | | | |1. No spinal canal stenosis. No neural foraminal stenosis. | |2. Mild disc degeneration of the lumbar spine with disc desiccation. | |3. Other findings as described. | | | | | + + documented in this encounter Visit Diagnoses + + | Diagnosis | + + | Lumbar radiculopathy Thoracic or lumbosacral neuritis or radiculitis, unspecified | + + documented in this encounter"
--- OUTSIDE RECORDS SUMMARY | ~2020-03-23 | XMS | Encounter Summary ---
Demographics + + + | Address | [address] | | | [place] [address] | + + + | Home Phone | | + + + | Preferred Language | Unknown | + + + | Marital Status | | + + + | Pentecostal Affiliation | Unknown | + + + | Race | White | + + + | Ethnic Group | Not or | + + + Author + + + | Author | [facility] | | | and [place] | + + + | Organization | [facility] | | | [...] | | | | | [place] [address] | | + + + + + | Elly | KATYA | Unknown | | | Sylvester | | | | + + + + + Care Team Providers + +------+ + | Care Office Lead Name | Role | Phone | + +------+ + PCP | Unavailable | + +------+ + Encounter Details +--------+ + + + + | Date | Type | Department | Care Team | Description | +--------+ + + + + | 07/07/ | Hospital | [facility] | Conversion | Pain | | 2014 | Encounter | CONVERSION [address] | Transaction, | | | | | [address] | Provider Unknown | | | | | [place], [place] | [phone] | | | | | [address] | | | | | | [phone] | | | +--------+ + + + [...] +--------+ + + + | CT ANGIOGRAM | Routin | 07/01/2013 | | Results for this | | PULMONARY | e | 12:57 AM | | procedure are in the | | | | PST | | results section. | + +--------+ + + + documented in this encounter Results CT Angiogram Pulmonary w Contrast (07/01/2013 12:57 AM PST) + + | Specimen | + [...]
--- OUTSIDE RECORDS SUMMARY | ~2020-03-23 | XMS | Encounter Summary ---
Demographics + + + | Address | [address] | | | [place] [address] | + + + | Home Phone | | + + + | Preferred Language | Unknown | + + + | Marital Status | | + + + | Shinto Affiliation | Unknown | + + + | Race | White | + + + | Ethnic Group | Not or | + + + Author + + + | Author | [facility] | | | and [place] | + + + | Organization | [facility] | | [...] | | | | | [place] [address] | | + + + + + | Elly | KATYA | Unknown | | | Sylvester | | | | + + + + + Care Team Providers + +------+ + | Care Retail Loss Prevention Investigator Name | Role | Phone | + +------+ + PCP | Unavailable | + +------+ + Encounter Details +--------+ + + + + | Date | Type | Department | Care Team | Description | +--------+ + + + + | 10/27/ | Hospital | [facility] | | | | 2012 | Encounter | MED CTR XRAY [address] | | | | | | [address] | | | | | | [place] [address] | | | | | | [phone] | | | +--------+ + + + [...]
--- OUTSIDE RECORDS SUMMARY | ~2020-03-23 | XMS | Encounter Summary ---
Demographics + + + | Address | [address] | | | [place] [address] | + + + | Home Phone | | + + + | Preferred Language | Unknown | + + + | Marital Status | | + + + | Sabianist Affiliation | Unknown | + + + | Race | White | + + + | Ethnic Group | Not or | + + + Author + + + | Author | [facility] | | | and [place] | + + + | Organization | [facility] | | [...] | | | | | [place] [address] | | + + + + + | Elly | KATYA | Unknown | | | Sylvester | | | | + + + + + Care Team Providers + +------+ + | Care Delivery Driver Assistant Name | Role | Phone | + +------+ + PCP | Unavailable | + +------+ + Encounter Details +--------+ + + + + | Date | Type | Department | Care Team | Description | +--------+ + + + + | 12/18/ | Hospital | [facility] | | | | 1996 | Encounter | MED CTR EMERGENCY | | | | | | CENTER [address] | | | | | | [place] | | | | | | [address] | | | | | | [phone] | | | +--------+ + + + [...]
--- OUTSIDE RECORDS SUMMARY | ~2020-03-23 | XMS | Encounter Summary ---
Demographics + + + | Address | [address] | | | [place] [address] | + + + | Home Phone | | + + + | Preferred Language | Unknown | + + + | Marital Status | | + + + | Voodoo Affiliation | Unknown | + + + | Race | White | + + + | Ethnic Group | Not or | + + + Author + + + | Author | [facility] | | | and [place] | + + + | Organization | [facility] | | | [...] | | | | | [place] [address] | | + + + + + | Elly | KATYA | Unknown | | | Sylvester | | | | + + + + + Care Team Providers + +------+ + | Care Slip Dumper Name | Role | Phone | + +------+ + PCP | Unavailable | + +------+ + Encounter Details +--------+ + + + + | Date | Type | Department | Care Team | Description | +--------+ + + + + | 06/01/ | Hospital | [facility] | Conversion | Unspecified disorder | | 2012 | Encounter | [facility] [address] | Transaction, | of kidney and | | | | [address] | Provider Unknown | ureter | | | | [place] | [phone] | | | | | [address] | | | | | | [phone] | | | +--------+ + + + [...] + +--------+ + + + | CT ABDOMEN W | Routin | 06/01/2013 | | Results for this | | CONTRAST | e | 1:27 PM | | procedure are in the | | | | PST | | results section. | + +--------+ + + + documented in this encounter Results CT Abdomen w Contrast (06/01/2013 1:27 PM PST) + + | Specimen | + + | | + + + + + | Impressions | Performed At | + + + | 1. No evidence of metastatic disease. Mild cardiac enlargement. | | | Mild fatty infiltration. Prior cholecystectomy. Left renal cortical | | | cyst. | | | 3:04 PM | | + + + + + + | Narrative | Performed At | + + + | SARA ALLEN CT ABDOMEN W CONTRAST 06/01/2013 1:27 PM | | | HISTORY: 52 years. Female. Left-sided flank and low back pain. | | | Prior history of uterine carcinoma, leukemia TECHNIQUE: 5-mm | | | axial images were acquired through the abdomen with contrast. 2 | | | postcontrast sequences were obtained Oral Contrast: None IV | | | contrast: 100 mL IsoVue 300 COMPARISON: None. FINDINGS: Lung | | | bases are normal. The heart is enlarged. Ratio is 14/25 The | | | distal esophagus is normal. Fatty liver infiltration identified, | | | mild. No mass or ductal dilatation identified Splenomegaly is | | | noted. The spleen is normal in attenuation. No solid or cystic | | | masses are seen. Diameter is 13 cm. No splenic mass identified The | | | pancreas is normal in size and attenuation. No solid or cystic | | | masses are noted. The gallbladder is surgically absent. The | | | adrenal glands are normal in size bilaterally. There is no evidence | | | of an adrenal adenoma or hyperplasia. The kidneys are symmetric in | | | size bilaterally and show no evidence of a solid mass. Left renal | | | cortical cyst identified. No hydronephrosis is noted. No stones are | | | seen in the collecting systems. The aorta and vena cava are normal | | | in caliber throughout their visualized course. No free fluid or | | | free air is seen. No adenopathy is noted. The stomach, | | | duodenum, jejunum, ileum, ileocecal valve are normal. No air-fluid | | | levels are seen to suggest obstruction. The appendix is below the | | | acquired field of view. The large intestine is unremarkable as | | | depicted The muscles are symmetric. No focal atrophy or soft | | | tissue mass is seen. No hernias are identified. The osseous | | | structures do not demonstrate lytic or blastic lesions. | | + + + + + | Procedure Note | + + | Maged, Rad Conversion - 02/12/2019 7:31 PM PDT SARA JENSEN ABDOMEN W | | IMYSHFKZ18/10/2013 1:27 PM HISTORY:52 years. Female. Left-sided flank and low back | | pain. Prior history of uterine carcinoma, leukemia TECHNIQUE:5-mm axial images were | | acquired through the abdomen with contrast. 2 postcontrast sequences were obtainedOral | | Contrast: NoneIV contrast: 100 mL IsoVue 300 COMPARISON:None. FINDINGS:Lung bases are | | normal. The heart is enlarged. Ratio is 14/25 The distal esophagus is normal. Fatty | | liver infiltration identified, mild. No mass or ductal dilatation identified | | Splenomegaly is noted. The spleen is normal in attenuation. No solid or cystic masses | | are seen. Diameter is 13 cm. No splenic mass identified The pancreas is normal in size | | and attenuation. No solid or cystic masses are noted. The gallbladder is surgically | | absent. The adrenal glands are normal in size bilaterally. There is no evidence of an | | adrenal adenoma or hyperplasia. The kidneys are symmetric in size bilaterally and show | | no evidence of a solid mass. Left renal cortical cyst identified. No hydronephrosis is | | noted. No stones are seen in the collecting systems. The aorta and vena cava are normal | | in caliber throughout their visualized course. No free fluid or free air is seen. No | | adenopathy is noted. The stomach, duodenum, jejunum, ileum, ileocecal valve are normal. | | No air-fluid levels are seen to suggest obstruction. The appendix is below the | | acquired field of view. The large intestine is unremarkable as depicted The muscles are | | symmetric. No focal atrophy or soft tissue mass is seen. No hernias are identified. | | The osseous structures do not demonstrate lytic or blastic lesions. IMPRESSION: 1. No | | evidence of metastatic disease. Mild cardiac enlargement. Mild fatty infiltration. Prior | | cholecystectomy. Left renal cortical cyst. | | | |The pancreas is normal in size and attenuation. No solid or cystic masses are noted. | | | |The gallbladder is surgically absent. | | | |The adrenal glands are normal in size bilaterally. There is no evidence of an adrenal carline mavis or hyperplasia. | | | |The kidneys are symmetric in size bilaterally and show no evidence of a solid mass. Left r enal cortical cyst identified. No hydronephrosis is noted. No stones are seen in the [facility]. | | | |The aorta and vena cava are normal in caliber throughout their visualized course. | | | |No free fluid or free air is seen. | | | |No adenopathy is noted. | | | |The stomach, duodenum, jejunum, ileum, ileocecal valve are normal. No air-fluid levels are seen to suggest obstruction. The appendix is below the acquired field of view. The large intestine is unremarkable as depicted | | | |The muscles are symmetric. No focal atrophy or soft tissue mass is seen. No hernias are i dentified. | | | |The osseous structures do not demonstrate lytic or blastic lesions. | | | |IMPRESSION: | |1. No evidence of metastatic disease. Mild cardiac enlargement. Mild fatty infiltration. P rior cholecystectomy. Left renal cortical cyst. | | | | | + + documented in this encounter Visit Diagnoses + + | Diagnosis | + + | Unspecified disorder of kidney and ureter | + + documented in this encounter"
--- OUTSIDE RECORDS SUMMARY | ~2020-03-23 | XMS | Encounter Summary ---
Demographics + + + | Address | [address] | | | [place] [address] | + + + | Home Phone [...] + | Author | [facility] | | | and [place] | + + + | Organization | [facility] | | | and [...] | | | | | [place] [address] | | + + + + + | Elly | KATYA | Unknown | | | Sylvester | | | | + + + + + Care Team Providers + +------+ + | Care Hook Puller Name | Role | Phone | + +------+ + PCP | Unavailable | + +------+ + Encounter Details +--------+ + + + + | Date | Type | Department | Care Team | Description | +--------+ + + + + | 02/21/ | Hospital | [facility] | Conversion | Flank pain; Pelvic | | 2014 | Encounter | [facility] | Transaction, | pain in female; | | | | [address] | Provider Unknown | Abdominal pain, | | | | [place], [place] | | unspecified site; | | | | [address] | | Unspecified symptom | | | | [phone] | | associated with | | | | | | female genital | | | | | | organs | +--------+ + + + + Social [...] +--------+ + + + | CT ABDOMEN PELVIS W | Routin | 02/21/2015 | | Results for this | | CONTRAST | e | 3:31 PM | | procedure are in the | | | | PDT | | results section. | + +--------+ + + + | CREATININE | Routin | 02/21/2015 | | Results for this | | | e | 2:30 PM | | procedure are in the | | | | PDT | | results section. | + +--------+ + + + documented in this encounter Results CT Abdomen Pelvis w Contrast (02/21/2015 3:31 PM PDT) + + | Specimen | + + | | + + + + + | Impressions | Performed At | + + + | 1. New hypodense right renal lesion measuring up to 18 mm. | | | Recommend renal ultrasound as the next step in evaluation of the | | | cystic vs. solid nature of this lesion. 2. Stable left simple cyst. | | | 3. Status post cholecystectomy and hysterectomy.. | | | | | + + + + + + | Narrative | Performed At | + + + | SARA ALLEN [address] ABDOMEN PELVIS W | | | CONTRAST 02/21/2015 3:31 PM INDICATION: Left upper quadrant and a | | | left lower quadrant abdominal pain. COMPARISON: CT 06/01/2013. | | | Renal ultrasound 12/10/2013. TECHNIQUE: 5-mm axial images were | | | acquired through the abdomen and pelvis with IV contrast. Coronal | | | reformations were performed. Oral Contrast: None IV contrast: 100 mL | | | Isovue-300 FINDINGS: Lung bases are clear. The liver is | | | homogeneous without focal lesion. No intra or extrahepatic biliary | | | ductal dilation. The hepatic and portal veins appear patent. The | | | patient is status post cholecystectomy. The spleen and pancreas | | | are normal. The adrenal glands are unremarkable. There is a stable | | | cyst within the lower pole of the left kidney measuring 32 mm. There | | | is a new hypoattenuating lesion within the interpolar region of the | | | right kidney measuring 14 x 18 x 14 mm (AP by ML by SI). There is no | | | hydronephrosis or nephrolithiasis. The bowel is thin walled and | | | nonobstructive. There is no free intraperitoneal air or fluid. No | | | enlarged mesenteric or retroperitoneal lymph nodes. The abdominal | | | aorta is within normal limits. No aortic aneurysm. The urinary | | | bladder is normal. The patient appears status post hysterectomy. | | | There are mild degenerative changes of the lower lumbar spine. No | | | suspicious lytic or blastic osseous lesions. | | + + + + + | Procedure Note | + + | Maged, Rad Conversion - 02/05/2019 3:15 AM PDT SARA ALLEN years | | FemaleCT ABDOMEN PELVIS W CONTRAST02/21/2015 3:31 PM INDICATION: Left upper quadrant and a | | left lower quadrant abdominal pain. COMPARISON: CT 06/01/2013. Renal ultrasound | | 12/10/2013. TECHNIQUE:5-mm axial images were acquired through the abdomen and pelvis with | | IV contrast. Coronal reformations were performed.Oral Contrast: NoneIV contrast: 100 mL | | Isovue-300 FINDINGS: Lung bases are clear. The liver is homogeneous without focal | | lesion. No intra or extrahepatic biliary ductal dilation. The hepatic and portal veins | | appear patent. The patient is status post cholecystectomy. The spleen and pancreas are | | normal. The adrenal glands are unremarkable. There is a stable cyst within the lower | | pole of the left kidney measuring 32 mm. There is a new hypoattenuating lesion within | | the interpolar region of the right kidney measuring 14 x 18 x 14 mm (AP by ML by SI). | | There is no hydronephrosis or nephrolithiasis. The bowel is thin walled and | | nonobstructive. There is no free intraperitoneal air or fluid. No enlarged mesenteric or | | retroperitoneal lymph nodes. The abdominal aorta is within normal limits. No aortic | | aneurysm. The urinary bladder is normal. The patient appears status post hysterectomy. | | There are mild degenerative changes of the lower lumbar spine. No suspicious lytic or | | blastic osseous lesions. IMPRESSION: 1. New hypodense right renal lesion measuring up | | to 18 mm. Recommend renal ultrasound as the next step in evaluation of the cystic vs. | | solid nature of this lesion.2. Stable left simple cyst.3. Status post cholecystectomy | | and hysterectomy.. | | | |The spleen and pancreas are normal. The adrenal glands are unremarkable. There is a stable cyst within the lower pole of the left kidney measuring 32 mm. There is a new hypoattenuatin g lesion within the interpolar region | |of the right kidney measuring 14 | |x 18 x 14 mm (AP by ML by SI). There is no hydronephrosis or nephrolithiasis. | | | |The bowel is thin walled and nonobstructive. There is no free intraperitoneal air or fluid. | | | |No enlarged mesenteric or retroperitoneal lymph nodes. | | | |The abdominal aorta is within normal limits. No aortic aneurysm. | | | |The urinary bladder is normal. The patient appears status post hysterectomy. | | | |There are mild degenerative changes of the lower lumbar spine. No suspicious lytic or blast ic osseous lesions. | | | |IMPRESSION: | |1. New hypodense right renal lesion measuring up to 18 mm. Recommend renal ultrasound as t he next step in evaluation of the cystic vs. solid nature of this lesion. | |2. Stable left simple cyst. | |3. Status post cholecystectomy and hysterectomy.. | | | | | + + Creatinine (02/21/2015 2:30 PM PDT) + + + + + + | Component | Value | Ref Range | Performed | Pathologist | | | | | At | Signature | + + + + + + | Creatinine | 0.82Comment: Testing | 0.50 - 1.00 | EXTERNAL | | | | performed at [facility] [place];888 | mg/dL | LAB | | | | [address];[place], [place] | | | | | | [address] | | | | + + + + + + + + | Specimen | + + | Blood specimen | | (specimen) | + + + +---------+ + + | Performing | Address | City/State/Zipcode | Phone Number | | Organization | | | | + +---------+ + + | EXTERNAL LAB | | | | + +---------+ + + documented in this encounter Visit Diagnoses + + | Diagnosis | + + | Flank pain Abdominal pain, unspecified site | + + | Pelvic pain in female Unspecified symptom associated with female genital organs | + + | Abdominal pain, unspecified site | + + | Unspecified symptom associated with female genital organs | + + documented in this encounter"
--- OUTSIDE RECORDS SUMMARY | ~2020-03-23 | XMS | Encounter Summary ---
Demographics + + + | Address | [address] | | | [place] [address] | + + + | Home Phone | | + + + | Preferred Language | Unknown | + + + | Marital Status | | + + + | Voodoo Affiliation | Unknown | + + + | Race | White | + + + | Ethnic Group | Not or | + + + Author + + + | Author | [facility] | | | and [place] | + + + | Organization | [facility] | | | and [...] | | | | | [place] [address] | | + + + + + | Elly | KATYA | Unknown | | | Sylvester | | | | + + + + + Care Team Providers + +------+ + | Care High Energy Forming Equipment Operator Name | Role | Phone | + +------+ + PCP | Unavailable | + +------+ + Encounter Details +--------+ + + + + | Date | Type | Department | Care Team | Description | +--------+ + + + + | 07/07/ | Hospital | [facility] | Conversion | Pain | | 2014 | Encounter | [address] | Transaction, | | | | | [address] | Provider Unknown | | | | | [place], [place] | [phone] | | | | | [address] | | | | | | [phone] | | | +--------+ + + + [...] + +--------+ + + + | CT RENAL STONE WO | Routin | 10/21/2012 | | Results for this | | CONTRAST | e | 12:52 AM | | procedure are in the | | | | PDT | | results section. | + +--------+ + + + documented in this encounter Results CT Renal Stone Wo Contrast (10/21/2012 12:52 AM PDT) + + | Specimen | [...]
--- OUTSIDE RECORDS SUMMARY | ~2020-03-23 | XMS | Encounter Summary ---
Demographics + + + | Address | [address] | | | [place] [address] | + + + | Home Phone | | + + + | Preferred Language | Unknown | + + + | Marital Status | | + + + | Mu-Ism Affiliation | Unknown | + + + | Race | White | + + + | Ethnic Group | Not or | + + + Author + + + | Author | [facility] | | | and [place] | + + + | Organization | [facility] | | | [...] | | | | | [place] [address] | | + + + + + | Elly | KATYA | Unknown | | | Sylvester | | | | + + + + + Care Team Providers + +------+ + | Care Radiation Oncology Therapist Name | Role | Phone | + [...] Provider Unknown | | | | | [place], [place] | [phone] | | | | | [address] | | | | | | [phone] | | | +--------+ + + + [...] + +--------+ + + + | CT UROGRAM W WO | Routin | 10/21/2012 | | Results for this | | CONTRAST | e | 11:07 PM | | procedure are in the | | | | PDT | | results section. | + +--------+ + + + documented in this encounter Results CT Urogram w wo Contrast (10/21/2012 11:07 PM PDT) + + | Specimen | [...]
--- OUTSIDE RECORDS SUMMARY | ~2020-03-23 | XMS | Encounter Summary ---
Demographics + + + | Address | [address] | | | [place] [address] | + + + | Home Phone | | + + + | Preferred Language | Unknown | + + + | Marital Status | | + + + | Taoism Affiliation | Unknown | + + + | Race | White | + + + | Ethnic Group | Not or | + + + Author + + + | Author | [facility] | | | and [place] | + + + | Organization | [facility] | | | [...] | | | | | [place] [address] | | + + + + + | Elly | KATYA | Unknown | | | Sylvester | | | | + + + + + Care Team Providers + +------+ + | Care Finance Admin Name | Role | Phone | + +------+ + PCP | Unavailable | + +------+ + Encounter Details +--------+ + + + + | Date | Type | Department | Care Team | Description | +--------+ + + + + | 05/11/ | Hospital | [facility] | Conversion | Thoracic or | | 2012 | Encounter | [facility] [address] | Transaction, | lumbosacral neuritis | | | | [address] | Provider Unknown | or radiculitis, | | | | [place] | [phone] | unspecified | | | | [address] | | | | | | [phone] | | | +--------+ + + + [...] + +--------+ + + + | CT LUMBAR SPINE WO | Routin | 05/11/2013 | | Results for this | | CONTRAST | e | 1:39 PM | | procedure are in the | | | | PST | | results section. | + +--------+ + + + documented in this encounter Results CT Lumbar Spine wo Contrast (05/11/2013 1:39 PM PST) + + | Specimen | + + | | + + + + + | Impressions | Performed At | + + + | 1. What appears to be a 3 cm mass in the anterior mid left | | | kidney. Advise renal protocol contrast-enhanced CT to investigate | | | further. 2. Distal colonic diverticulosis 3. No vertebral | | | fracture, compression or aggressive lesion. There is multilevel facet | | | disease of the lower lumbar spine and loss of the L5-S1 disc space. At | | | least moderate foraminal narrowing at that level is felt | | | demonstrated. These findings may contribute to symptoms, but soft | | | tissue contrast resolution is limited by body habitus. MRI may be | | | useful to supplement this exam. | | + + + + + + | Narrative | Performed At | + + + | History: 52-year-old female with pain. Reports bilateral lower | | | extremity radiculopathy. Technique: Bone algorithm noncontrast CT | | | through the lumbar spine with collimated views of the pelvis in | | | sagittal and coronal reconstructions. Fine cut. Prior study: None | | | Findings: Ropewalk Rope Maker demonstrates generous body habitus which is | | | limiting. There are clips in the gallbladder fossa. Qing-spinal | | | soft tissues reveal a mass in the anterior mid left kidney on image 23 | | | series 4 which measures about 3 cm. Clips in the gallbladder fossa. | | | Alignment normal Bones to dedicated technique demonstrate | | | reveal no fracture or aggressive lesion. Villarreal lumbar endplate | | | production. Loss of the L5-S1 disc space. T12-L1: Minor facet | | | arthropathy but no significant impact upon the foramina or canal | | | L1-L2: Minor facet and ligamentous hypertrophy, subtle bulge of the | | | disc of less than 2 mm. No evident impact upon the canal or foramina | | | L2-L3: Bulge of the disc is suggested, contrast resolution was low. | | | There is facet arthropathy. There is probably at least mild narrowing | | | of the canal. Foramina seen preserved L3-L4: Facet arthropathy, | | | symmetric. Mild bulge of the disc of less than 2 mm. Favor minor | | | narrowing of the canal and foramina. Balanced. L4-L5: | | | Xoxv-es-vuwefsyq left and mild right foraminal narrowing. Facet | | | arthropathy and lateral bulge of the disc are likely explanatory. | | | Contrast resolution is quite limited. L5-S1: Szgd-ac-gsuabusb | | | bilateral foraminal narrowing. Facet arthropathy and disc endplate | | | disease. Either exiting L5 nerve could be affected, lateral | | | osteophytosis is greater on the right. SI joints are fairly | | | symmetric, with some vacuum phenomena and prepped of change on the | | | left. | | + + + + + | Procedure Note | + + | Maged, Rad Conversion - 02/12/2019 7:31 PM PDT History: 52-year-old female with pain. | | Reports bilateral lower extremity radiculopathy. Technique: Bone algorithm noncontrast | | CT through the lumbar spine with collimated views of the pelvis in sagittal and coronal | | reconstructions. Fine cut. Prior study: None Findings: Ropewalk Rope Maker demonstrates generous body | | habitus which is limiting. There are clips in the gallbladder fossa. Qing-spinal soft | | tissues reveal a mass in the anterior mid left kidney on image 23 series 4 which | | measures about 3 cm. Clips in the gallbladder fossa. Alignment normal Bones to dedicated | | technique demonstrate reveal no fracture or aggressive lesion. Villarreal lumbar endplate | | production. Loss of the L5-S1 disc space. T12-L1: Minor facet arthropathy but no | | significant impact upon the foramina or canal L1-L2: Minor facet and ligamentous | | hypertrophy, subtle bulge of the disc of less than 2 mm. No evident impact upon the | | canal or foramina L2-L3: Bulge of the disc is suggested, contrast resolution was low. | | There is facet arthropathy. There is probably at least mild narrowing of the canal. | | Foramina seen preserved L3-L4: Facet arthropathy, symmetric. Mild bulge of the disc of | | less than 2 mm. Favor minor narrowing of the canal and foramina. Balanced. L4-L5: | | Frmw-za-ebyjvtfo left and mild right foraminal narrowing. Facet arthropathy and lateral | | bulge of the disc are likely explanatory. Contrast resolution is quite limited. L5-S1: | | Pucj-qg-slbfimsv bilateral foraminal narrowing. Facet arthropathy and disc endplate | | disease. Either exiting L5 nerve could be affected, lateral osteophytosis is greater on | | the right. SI joints are fairly symmetric, with some vacuum phenomena and prepped of | | change on the left. IMPRESSION: 1. What appears to be a 3 cm mass in the anterior mid | | left kidney. Advise renal protocol contrast-enhanced CT to investigate further. 2. | | Distal colonic diverticulosis 3. No vertebral fracture, compression or aggressive | | lesion. There is multilevel facet disease of the lower lumbar spine and loss of the | | L5-S1 disc space. At least moderate foraminal narrowing at that level is felt | | demonstrated. These findings may contribute to symptoms, but soft tissue contrast | | resolution is limited by body habitus. MRI may be useful to supplement this exam. | | | |IMPRESSION: | | | |1. What appears to be a 3 cm mass in the anterior mid left kidney. Advise renal protocol co ntrast-enhanced CT to investigate further. | | | |2. Distal colonic diverticulosis | | | |3. No vertebral fracture, compression or aggressive lesion. There is multilevel facet disea se of the lower lumbar spine and loss of the L5-S1 disc space. At least moderate foraminal n arrowing at that level is felt demonstrated. | | | |These findings may contribute to symptoms, but soft tissue contrast resolution is limited b y body habitus. MRI may be useful to supplement this exam. | | | | | + + documented in this encounter Visit Diagnoses + + | Diagnosis | + + | Thoracic or lumbosacral neuritis or radiculitis, unspecified | + + documented in this encounter"
--- OUTSIDE RECORDS SUMMARY | ~2020-03-23 | XMS | Encounter Summary ---
Demographics + + + | Address | [address] | | | [place] [address] | + + + | Home Phone | | + + + | Preferred Language | Unknown | + + + | Marital Status | | + + + | Latter Day Affiliation | Unknown | + + + | Race | White | + + + | Ethnic Group | Not or | + + + Author + + + | Author | [facility] | | | and [place] | + + + | Organization | [facility] | | | [...] | | | | | [place] [address] | | + + + + + | Elly | KATYA | Unknown | | | Sylvester | | | | + + + + + Care Team Providers + +------+ + | Care Rn Concurrent Review Name | Role | Phone | + +------+ + | Wade Sena MD | PCP | | + +------+ + Encounter Details +--------+ + + + + | Date | Type | Department | Care Team | Description | +--------+ + + + + | 12/10/ | Orders Only | [facility] | [place], | | | 2013 | | UROLOGY [address] [place] [address] | PhD [address] | | | | | [place] [address] | [facility] | | | | | [place], [place] | [place] [address] | | | | | [address] | [phone] | | | | | [phone] | | | +--------+ + + + [...] + | URINALYSIS, REFLEX | Routin | 12/10/2013 | | Results for this | | MICROSCOPIC AND/OR | e | 2:04 PM | | procedure are in the | | CULTURE | | PDT | | results section. | + +--------+ + + + | URINALYSIS, | Routin | 12/10/2013 | | Results for this | | MICROSCOPIC ONLY | e | 2:04 PM | | procedure are in the | | | | PDT | | results section. | + +--------+ + + + documented in this encounter Results Urinalysis, Reflex Microscopic and/or Culture (12/10/2013 2:04 PM PDT) + + + + + + | Component | Value | Ref Range | Performed | Pathologist | | | | | At | Signature | + + + + + + | Color | YELLOW | | EXTERNAL | | | | | | LAB | | + + + + + + | Clarity, | HAZY | | EXTERNAL | | | Urine | | | LAB | | + + + + + + | Specific | 1.025 | 1.002 - 1.030 | EXTERNAL | | | [facility], | | | LAB | | | [...] + +---------+ + + Urinalysis, Microscopic Only (12/10/2013 2:04 PM PDT) + + + + + [...] + + + | RBC, UA | 1-5 | 0 - 5 /hpf | EXTERNAL | | | | | | LAB | | + + + + + + | Epithelial | 50-100 | /lpf | EXTERNAL | | | [...]
--- OUTSIDE RECORDS SUMMARY | ~2020-03-23 | XMS | Encounter Summary ---
Demographics + + + | Address | [address] | | | [place] [address] | + + + | Home Phone | | + + + | Preferred Language | Unknown | + + + | Marital Status | | + + + | Pentecostalism Affiliation | Unknown | + + + | Race | White | + + + | Ethnic Group | Not or | + + + Author + + + | Author | [facility] | | | and [place] | + + + | Organization | [facility] | | | [...] | | | | | [place] [address] | | + + + + + | Elly | KATYA | Unknown | | | Sylvester | | | | + + + + + Care Team Providers + +------+ + | Care Paste Mixer Liquid Name | Role | Phone | + +------+ + | Wade Sena MD | PCP | | + +------+ + Encounter Details +--------+ + + + + | Date | Type | Department | Care Team | Description | +--------+ + + + + | 06/14/ | Orders Only | [facility] | Conversion | | | 2012 | | CONVERSION [address] | Transaction, | | | | | [address] | Provider Unknown | | | | | [place], [place] | [phone] | | | | | [address] | | | | | | [phone] | | | +--------+ + + + [...]
--- OUTSIDE RECORDS SUMMARY | ~2020-03-23 | XMS | Encounter Summary ---
Demographics + + + | Address | [address] | | | [place] [address] | + + + | Home Phone | | + + + | Preferred Language | Unknown | + + + | Marital Status | | + + + | Baptist Affiliation | Unknown | + + + | Race | White | + + + | Ethnic Group | Not or | + + + Author + + + | Author | [facility] | | | and [place] [...] | | | | | [place] [address] | | + + + + + | Elly | KATYA | Unknown | | | Sylvester | | | | + + + + + Care Team Providers + +------+ + | Care Head Sawyer Name | Role | Phone | + +------+ + | Wade Sena MD | PCP | | + +------+ + Encounter Details +--------+ + + + + | Date | Type | Department | Care Team | Description | +--------+ + + + + | 11/24/ | Orders Only | [facility] | Conversion | | | 2019 | | CONVERSION [address] | Transaction, | | | | | [address] | Provider Unknown | | | | | [place], [place] | [phone] | | | | | [address] | | | | | | [phone] | | | +--------+ + + + [...]
--- OUTSIDE RECORDS SUMMARY | ~2020-03-23 | XMS | Encounter Summary ---
Demographics + + + | Address | [address] | | | [place] [address] | + + + | Home Phone | | + + + | Preferred Language | Unknown | + + + | Marital Status | | + + + | Restoration Affiliation | Unknown | + + + | Race | White | + + + | Ethnic Group | Not or | + + + Author + + + | Author | [facility] | | | and [...] | | | | | [place] [address] | | + + + + + | Elly | KATYA | Unknown | | | Sylvester | | | | + + + + + Care Team Providers + +------+ + | Care Blast Furnace Operator Name | Role | Phone | + +------+ + PCP | Unavailable | + +------+ + Encounter Details +--------+ + + + + | Date | Type | Department | Care Team | Description | +--------+ + + + + | 11/24/ | Hospital | [facility] | Conversion | DDD (degenerative | | 2019 | Encounter | [facility] | Transaction, | disc disease), | | | | [address] | Provider Unknown | lumbar; Lumbar | | | | [address] [place], [place] | [phone] | radiculopathy, acute | | | | [address] | | | | | | [phone] | | | +--------+ + + + [...] + + + +---------+ + + | lisinopril | Take 20 mg by mouth | | 0 | 11/25/19 | | | (PRINIVIL, ZESTRIL) | daily. | | | 19 | | | 20 mg tablet | | | | | | + + + +---------+ + + | mirabegron | Take 50 mg by mouth. | | 0 | 11/25/19 | | | (MYRBETRIQ) 50 mg ER | | | | 19 | | | tablet | | | | | | + + + +---------+ + + | ondansetron | Take 1 tablet by | | 0 | 11/25/19 | | | (ZOFRAN ODT) 4 mg | mouth. | | | 19 | | | disintegrating | | | | | | | tablet | | [...] | + +--------+ + + + | XR LUMBAR SPINE 4 + | Routin | 11/24/2018 | | Results for this | | VW | e | 10:07 AM | | procedure are in the | | | | PDT | | results section. | + +--------+ + + + documented in this encounter Results XR Lumbar Spine 4 + Vw (11/24/2018 10:07 AM PDT) + + | Specimen | + + | | + + + + + | Impressions | Performed At | + + + | 1. Moderate disc height loss at the L5-S1 level. 2. Mild | | | degenerative changes at the remaining levels. Signed by: Litzy | | Tra Donaldson M.D. Date/Time: 11/24/2018 3:33 PM | | + + + + + + | Narrative | Performed At | + + + | LUMBAR SPINE FOUR VIEWS CLINICAL INFORMATION: Lumbar pain. | | | Evaluate for listhesis COMPARISON: Reviewed with comparison | | | 10/25/2017. FINDINGS: Alignment: Mild hyperlordosis. No subluxation | | | with limited flexion or extension. Vertebrae: Vertebral body heights | | | are preserved. Endplates are intact. Lumbar Disc Levels: Moderate | | | disc height loss at the L5-S1 level. Mild degenerative changes at | | | the remaining levels. Facets and Posterior Spinal Elements: Mild | | | facet hypertrophy at the L4-5 level. | | + + + + + | Procedure Note | + + | Maged, Rad Conversion - 02/02/2019 7:28 PM PDT LUMBAR SPINE FOUR VIEWS | | CLINICAL INFORMATION: | | Lumbar pain. Evaluate for listhesis | | COMPARISON: | | Reviewed with comparison 10/25/2017. | | FINDINGS: | | Alignment: Mild hyperlordosis. No subluxation with limited flexion or | | extension. | | Vertebrae: Vertebral body heights are preserved. Endplates are intact. | | Lumbar Disc Levels: Moderate disc height loss at the L5-S1 level. Mild | | degenerative changes at the remaining levels. | | Facets and Posterior Spinal Elements: Mild facet hypertrophy at the | | L4-5 level. | | IMPRESSION: | | 1. Moderate disc height loss at the L5-S1 level. | | 2. Mild degenerative changes at the remaining levels. | | Signed by: Ramon Mcghee Richard | | Sign Date/Time: 11/24/2018 3:33 PM | + + documented in this encounter Visit Diagnoses + + | Diagnosis | + + | DDD (degenerative disc disease), lumbar Degeneration of lumbar or lumbosacral | | intervertebral disc | + + | Lumbar radiculopathy, acute Thoracic or lumbosacral neuritis or radiculitis, | | unspecified | + + documented in this encounter"
--- OUTSIDE RECORDS SUMMARY | 2020-03-23 17:58 | XMS ---
PreManage Notification: SARA ALLEN Security Lens Inserter Events No recent Security Events currently on file [facility] MET - [facility] MICHELE DAVIS Internal Medicine 08/09/2019-Current PHONE: Unknown Mariam Daniels Cash Applications Clerk/Insurance Sales Supervisor 03/05/2020-Current PHONE: [phone] Faustino has no Care Guidelines for this patient. Nimisha VISIT COUNT (12 MO.) 2 [facility] TOTAL 2 NOTE: Visits indicate total known visits. ED/UCC VISIT TRACKING (12 MO.) 03/23/2020 17:[address] [facility] [place] TYPE: Emergency COMPLAINT: - GLF, R LEG PAIN/INJURY 08/06/2019 15:[address] 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
--- NOTE | 2020-03-24 13:59 | EKG ---
[facility] [address] [facility] [place], [place] [address] Signed Normal sinus rhythm Cannot rule out Inferior infarct , age undetermined Abnormal ECG No previous ECGs available Confirmed by MICHELE PARDO DO ([id number]) on 03/24/2020 1:59:35 PM Electronically Signed By: MICHELE PARDO DO 03/24/20 1359 PATIENT NAME: SARA ALLEN Electrocardiogram DATE OF : 58 PHYSICIAN: MICHELE PARDO DO REPORT #: [id number] REPORT IS CONFIDENTIAL AND NOT TO BE RELEASED WITHOUT AUTHORIZATION
== END ==
LOC: ED 17:56
DX: S83.91XA Sprain of unspecified site of right knee, initial encounter (principal); W10.9XXA Fall (on) (from) unspecified stairs and steps, initial encounter; I25.2 Old myocardial infarction; I10 Essential (primary) hypertension; Z85.42 Personal history of malignant neoplasm of other parts of uterus; Z85.830 Personal history of malignant neoplasm of bone; Z85.528 Personal history of other malignant neoplasm of kidney
CPT/HCPCS: 72131; 73552; 73560; 73706; 80053; 83735; 84484; 85025; 93005; 93010; 99284-25; J1100; J1200; Q9967